=== PATIENT | female | born 1950 | race American Indian/Alaskan Native ===

== ENCOUNTER 2016-08-27 13:40 | Inpatient (IN) | payer MEDICARE, BC, MEDICAID ==
[2016-08-27] VITALS (10 sets, daily range): BP systolic 96–173; BP diastolic 47–100
[~2016-08-27] VITALS: Ht 167.6 cm; Wt 85.3 kg
[~2016-08-27 13:40] MED LIST: DIOVAN HCT 1601 EAC1 ORAL; ENTEX T 60-3751 EACH PO; IBUPROFEN800 MG ORAL; LEVOTHYROXINE150 MCG ORAL; PROTONIX40 MG ORAL
[2016-08-27] MEDS ORDERED: OMEPRAZOLE20 M3 ORAL (13:56)
[2016-08-27] MEDS ORDERED: LORCET HD 10-31 EACH PO (13:56)
[2016-08-27] MEDS ORDERED: BACTRIM DOUBLE S1 E1 ORAL (13:57)
[2016-08-27 14:14] LABS: BASOPHILS % (AUTO) 0.8 % (0.0-2.0); EOSINOPHILS % (AUTO) 3.7 % (0.0-3.0); MEAN CORPUSCULAR HGB CONC 33.9 G/DL (32.0-36.0); MEAN CORPUSCULAR VOLUME 83 FL (80-99); MEAN PLATELET VOLUME 6.3 FL (6.5-10.1); MONOCYTES % (AUTO) 5.8 % (1.0-10.0); NEUTROPHILS % (AUTO) 61.8 % (45.0-75.0); PLATELET COUNT 376 K/UL (150-450); RED BLOOD COUNT 5.61 M/UL (4.20-5.40); RED CELL DISTRIBUTION WIDTH 12.6 % (11.6-14.8); WHITE BLOOD COUNT 10.2 K/UL (4.8-10.8)
[2016-08-27] MEDS ORDERED: LORazepam Inj 2mg/ml 1ml IV ONE ×2 (14:15→17:30)
[2016-08-27 14:27] LABS: INR 1.1 (0.9-1.1); PROTHROMBIN TIME 10.7 SEC (9.30-11.50)
[2016-08-27 14:31] LABS: ALANINE AMINOTRANSFERASE 17 U/L (3-33); ALBUMIN/GLOBULIN RATIO 1.7 (1.0-2.7); ANION GAP 20 (5-15); ASPARTATE AMINO TRANSFERASE 15 U/L (5-40); CALCIUM 9.5 mg/dL (8.6-10.2); CARBON DIOXIDE 25 mEQ/L (20-30); CHLORIDE 99 mEQ/L (98-107); CREATININE 0.8 mg/dL (0.5-0.9); GLOMERULAR FILTRATION RATE > 60 mL/min (>60); HEMOLYSIS 5; POTASSIUM 3.3 mEQ/L (3.4-4.9); SODIUM 144 mEQ/L (135-145); TOTAL PROTEIN 6.8 g/dL (6.6-8.7)
[2016-08-27 14:35] LABS: TROPONIN I < 0.30 ng/mL (<=0.30)
--- NOTE | 2016-08-27 14:40 | Diagnostic Imaging Report ---
Indication: Chest Pain Comparison: None A single view chest radiograph was obtained. Findings: Cardiomediastinal appearance is within normal limits for age. Pulmonary vascularity is appropriate. The diaphragmatic contour is smooth and costophrenic angles are sharp. No pleural effusions are identified. The bones are slightly osteopenic. Cervical fusion hardware noted.. Impression: No acute findings
--- NOTE | 2016-08-27 15:20 | Diagnostic Imaging Report ---
Indication: Syncope Technique: Contiguous 5 mm thick transaxial imaging of the head obtained in a Siemens Sensation [address] scanner. Soft tissue and bone windows generated. Total Dose length Product (DLP): [address] Dose Index Volume (CTDIvol): 70.38 mGy Comparison: 06/23/13 Findings: Small focus of encephalomalacia noted within the right frontal lobe unchanged from the previous examination. Considerations include previous trauma or ischemia. The size and configuration of the cortical sulci, basal cisterns, and ventricles are within normal limits for age. There is no mass effect, midline shift, or edema identified. There is no evidence of acute hemorrhage or abnormal intra-axial or extra-axial fluid collections. The bones and soft tissues are unremarkable. Total thickening noted within the paranasal sinuses. Impression: No mass effect, edema or acute bleed. Encephalomalacia right frontal region. Sinusitis The CT scanner at [facility] is accredited by the [employer] and the scans are performed using protocols designed to limit radiation exposure to as low as reasonably achievable to attain images of sufficient resolution adequate for diagnostic evaluation.
[2016-08-27 15:25] LABS: ERYTHROCYTE SEDIMENTATION RATE 25 MM/HR (0-30)
--- NOTE | 2016-08-27 15:25 | Emergency Room Report ---
History of Present Illness General Chief Complaint: Generalized Weakness Source: Patient, EMS Present Illness HPI The patient presents with near passing out. She feels tingling throughout her body. She was in the supermarket today when this began. She denies feeling dehydrated. She denies having chest pain. She does have some dyspnea on exertion. Hasn't had any fever. The last month she had flu symptoms. Her doctor recently prescribed amoxicillin which she finished. She states this was for a sinus infection. She has some loose stool. She denies any dysuria. There is no joint pain. She denies stress, but her daughter states she is have a lot of stress. She felt similar when she had operation many years ago (post op). No dysuria, joint pain, HARMON, chest pain. Allergies: Coded Allergies: HYDROMORPHONE (Verified Allergy, Unknown, rash, 08/27/16) Patient History Past Medical History: see triage record Past Surgical History: other - spine surgery Social History: Reports: smoking - prior Social History Narrative with daughters - Reviewed Nursing Documentation: PMH: Agreed, PSxH: Agreed Nursing Documentation-PMH Past Medical History: No History, Except For Hx Hypertension: Yes Hx Gastrointestinal Problems: Yes - gerd Hx Neurological Problems: Yes - mulit surgeries on back Review of Systems All Other Systems: negative except mentioned in HPI Physical Exam Vital Signs Date Time Temp Pulse Resp B/P Pulse Ox O2 Delivery O2 Flow Rate FiO2 08/27/16 13:29 98.1 78 12 173/81 99 Room Air Sp02 EP Interpretation: reviewed, normal General Appearance: well appearing, no apparent distress, GCS 15 Head: normocephalic Eyes: bilateral eye EOMI, bilateral eye PERRL, bilateral eye normal inspection ENT: moist mucus membranes Neck: supple Respiratory: chest non-tender, lungs clear, normal breath sounds Cardiovascular #1: regular rate, rhythm Cardiovascular #2: 2+ radial (R) Gastrointestinal: normal inspection, normal bowel sounds, non tender, no mass, non-distended Musculoskeletal: back normal, gait/station normal, normal range of motion Neurologic: alert, oriented x3, physician's assistant III-XII nml as tested, motor strength/tone normal, DTRs symmetric, sensory intact, cerebellar normal, speech normal Psychiatric: mood/affect normal Skin: normal inspection, warm/dry Medical Decision Making Diagnostic Impression: Primary Impression: Near syncope Additional Impressions: Hypokalemia Post R frontal infarct ER Course The patient presents with near syncope and feeling of tingling in her body. This has a broad differential including acute myocardial infarction, hyperventilation, electrolyte abnormalities, dehydration, occult infection amongst others. Evaluation with EKG labs chest x-ray. She has a nonfocal neurologic exam. CT of the head is indicated as she has weakness/unusual symptoms which I cannot pinpoint. Labs significant for slightly low potassium and negative D dimer. CT significant for R frontal infarct which is old (she was unaware - though present on prior CT). Tingling feeling returning. Ativan repeated. Admit tele Dr. Villalba. Laboratory Tests Test 08/27/16 13:45 08/27/16 14:55 White Blood Count 10.2 K/UL (4.8-10.8) Red Blood Count 5.61 M/UL (4.20-5.40) H Hemoglobin 15.7 G/DL (12.0-16.0) Hematocrit 46.3 % (37.0-47.0) Mean Corpuscular Volume 83 FL (80-99) Mean Corpuscular Hemoglobin 28.0 PG (27.0-31.0) Mean Corpuscular Hemoglobin Concent 33.9 G/DL (32.0-36.0) Red Cell Distribution Width 12.6 % (11.6-14.8) Platelet Count 376 K/UL (150-450) Mean Platelet Volume 6.3 FL (6.5-10.1) L Neutrophils (%) (Auto) 61.8 % (45.0-75.0) Lymphocytes (%) (Auto) 28.0 % (20.0-45.0) Monocytes (%) (Auto) 5.8 % (1.0-10.0) Eosinophils (%) (Auto) 3.7 % (0.0-3.0) H Basophils (%) (Auto) 0.8 % (0.0-2.0) Erythrocyte Sedimentation Rate 25 MM/HR (0-30) Prothrombin Time 10.7 SEC (9.30-11.50) Prothrombin Time INR 1.1 (0.9-1.1) PTT 26 SEC (23-33) D-Dimer 356 ng/mL (<500) Sodium Level 144 mEQ/L (135-145) Potassium Level 3.3 mEQ/L (3.4-4.9) L Chloride Level 99 mEQ/L (98-107) Carbon Dioxide Level 25 mEQ/L (20-30) Anion Gap 20 (5-15) H Blood Urea Nitrogen 16 mg/dL (7-23) Creatinine 0.8 mg/dL (0.5-0.9) Estimate Glomerular Filtration Rate > 60 mL/min (>60) Glucose Level 161 mg/dL (74-106) H Calcium Level 9.5 mg/dL (8.6-10.2) Total Bilirubin 0.4 mg/dL (0.0-1.2) Aspartate Amino Transferase (AST) 15 U/L (5-40) Alanine Aminotransferase (ALT) 17 U/L (3-33) Alkaline Phosphatase 120 U/L (35-104) H Total Creatine Kinase 51 U/L (26-140) Troponin I < 0.30 ng/mL (<=0.30) Pro-B-Type Natriuretic Peptide 224 pg/mL (0-125) H Total Protein 6.8 g/dL (6.6-8.7) Albumin 4.3 g/dL (3.5-5.2) Globulin 2.5 g/dL Albumin/Globulin Ratio 1.7 (1.0-2.7) Urine Color Yellow Urine Appearance Slightly cloudy Urine pH 6 (4.5-8.0) Urine Specific [place] 1.015 (1.005-1.035) Urine Protein Negative (NEGATIVE) Urine Glucose (UA) Negative (NEGATIVE) Urine Ketones Negative (NEGATIVE) Urine Occult Blood 2+ (NEGATIVE) H Urine Nitrite Negative (NEGATIVE) Urine Bilirubin Negative (NEGATIVE) Urine Urobilinogen Normal MG/DL (0.0-1.0) Urine Leukocyte Esterase 1+ (NEGATIVE) H Urine RBC 2-4 /HPF (0 - 2) H Urine WBC 2-4 /HPF (0 - 2) Urine Squamous Epithelial Cells Moderate /LPF (NONE/OCC) H Urine Bacteria Few /HPF (NONE) EKG Diagnostic Results Rate: normal Rhythm: NSR ST Segments: no acute changes Rhythm Strip Diag. Results EP Interpretation: yes Rhythm: NSR, no PVC's, no ectopy Chest X-Ray Diagnostic Results EP Interpretation: Yes Findings: no consolidation, no effusion, no pneumothorax, no acute cardiopulmonary disease, other - neck hardware Number of Views: 1 CT/MRI/US Diagnostic Results CT/MRI/US Diagnostic Results : Imaging Test Ordered: head Impression encephalomalecia R frontal lobe Last Vital Signs Date Time Temp Pulse Resp B/P Pulse Ox O2 Delivery O2 Flow Rate FiO2 08/28/16 00:29 63 08/27/16 23:58 98.8 19 147/58 95 Room Air Status: improved Disposition: ADMITTED INPATIENT Condition: Serious Referrals: NON PHYSICIAN (PCP) Ruiz Michael M.D. August 27, 2016 15:24
[2016-08-27 15:50] LABS: KETONES,URINE NEGATIVE (NEGATIVE); LEUKOCYTE ESTERASE ,URINE 1+ (NEGATIVE); NITRITE,URINE NEGATIVE (NEGATIVE); PH,URINE 6 (4.5-8.0); PROTEIN,URINE NEGATIVE (NEGATIVE); UROBILINOGEN,URINE NORMAL MG/DL (0.0-1.0)
[2016-08-27 15:55] LABS: APPEARANCE,URINE SLIGHTLY CLOUDY
[2016-08-27 16:12] LABS: BACTERIA,URINE FEW /HPF; SQUAMOUS EPITHELIAL CELL,UR MODERATE /LPF (NONE/OCC)
[2016-08-27] MEDS ORDERED: KCl 10% 40mEq/30ml liquid ORAL STA (16:57)
--- NOTE | 2016-08-27 19:18 | Cardiology Progress Note ---
Assessment/Plan Assessment/Plan The patient is seen and examined, full consult note is dictated. Objective Last 24 Hour Vital Signs Date Time Temp Pulse Resp B/P Pulse Ox O2 Delivery O2 Flow Rate FiO2 08/27/16 19:00 61 24 96/47 98 Room Air 08/27/16 18:44 97.8 58 18 110/75 99 Room Air 08/27/16 18:00 97.8 58 18 110/75 99 Room Air 08/27/16 17:00 55 14 98/69 97 Room Air 08/27/16 16:00 60 13 134/99 95 Room Air 08/27/16 15:00 57 14 134/100 100 Room Air 08/27/16 14:00 66 13 129/83 100 Room Air 08/27/16 13:43 98.1 78 12 173/81 99 Room Air 08/27/16 13:29 98.1 78 12 173/81 99 Room Air Laboratory Tests Test 08/27/16 13:45 08/27/16 14:55 White Blood Count 10.2 K/UL (4.8-10.8) Red Blood Count 5.61 M/UL (4.20-5.40) H Hemoglobin 15.7 G/DL (12.0-16.0) Hematocrit 46.3 % (37.0-47.0) Mean Corpuscular Volume 83 FL (80-99) Mean Corpuscular Hemoglobin 28.0 PG (27.0-31.0) Mean Corpuscular Hemoglobin Concent 33.9 G/DL (32.0-36.0) Red Cell Distribution Width 12.6 % (11.6-14.8) Platelet Count 376 K/UL (150-450) Mean Platelet Volume 6.3 FL (6.5-10.1) L Neutrophils (%) (Auto) 61.8 % (45.0-75.0) Lymphocytes (%) (Auto) 28.0 % (20.0-45.0) Monocytes (%) (Auto) 5.8 % (1.0-10.0) Eosinophils (%) (Auto) 3.7 % (0.0-3.0) H Basophils (%) (Auto) 0.8 % (0.0-2.0) Erythrocyte Sedimentation Rate 25 MM/HR (0-30) Prothrombin Time 10.7 SEC (9.30-11.50) Prothromb Time International Ratio 1.1 (0.9-1.1) Activated Partial Thromboplast Time 26 SEC (23-33) D-Dimer 356 ng/mL (<500) Sodium Level 144 mEQ/L (135-145) Potassium Level 3.3 mEQ/L (3.4-4.9) L Chloride Level 99 mEQ/L (98-107) Carbon Dioxide Level 25 mEQ/L (20-30) Anion Gap 20 (5-15) H Blood Urea Nitrogen 16 mg/dL (7-23) Creatinine 0.8 mg/dL (0.5-0.9) Estimat Glomerular Filtration Rate > 60 mL/min (>60) Glucose Level 161 mg/dL (74-106) H Calcium Level 9.5 mg/dL (8.6-10.2) Total Bilirubin 0.4 mg/dL (0.0-1.2) Aspartate Amino Transf (AST/SGOT) 15 U/L (5-40) Alanine Aminotransferase (ALT/SGPT) 17 U/L (3-33) Alkaline Phosphatase 120 U/L (35-104) H Total Creatine Kinase 51 U/L (26-140) Troponin I < 0.30 ng/mL (<=0.30) Pro-B-Type Natriuretic Peptide 224 pg/mL (0-125) H Total Protein 6.8 g/dL (6.6-8.7) Albumin 4.3 g/dL (3.5-5.2) Globulin 2.5 g/dL Albumin/Globulin Ratio 1.7 (1.0-2.7) Urine Color Yellow Urine Appearance Slightly cloudy Urine pH 6 (4.5-8.0) Urine Specific [place] 1.015 (1.005-1.035) Urine Protein Negative (NEGATIVE) Urine Glucose (UA) Negative (NEGATIVE) Urine Ketones Negative (NEGATIVE) Urine Occult Blood 2+ (NEGATIVE) H Urine Nitrite Negative (NEGATIVE) Urine Bilirubin Negative (NEGATIVE) Urine Urobilinogen Normal MG/DL (0.0-1.0) Urine Leukocyte Esterase 1+ (NEGATIVE) H Urine RBC 2-4 /HPF (0 - 2) H Urine WBC 2-4 /HPF (0 - 2) Urine Squamous Epithelial Cells Moderate /LPF (NONE/OCC) H Urine Bacteria Few /HPF (NONE) DELMY TEIXEIRA August 27, 2016 19:18
[2016-08-27] MEDS: Pantoprazole Inj IVP SCH (20:36)
[2016-08-27] MEDS: Heparin 5000 units/ml inj SUBQ SCH (20:37)
[2016-08-28 03:53] VITALS: BP 138/67
[2016-08-28 08:00] VITALS: BP 130/76
[2016-08-28 08:44] LABS: BASOPHILS % (AUTO) 0.8 % (0.0-2.0); EOSINOPHILS % (AUTO) 4.9 % (0.0-3.0); LYMPHOCYTES % (AUTO) 32.6 % (20.0-45.0); MEAN CORPUSCULAR HEMOGLOBIN 27.9 PG (27.0-31.0); MEAN CORPUSCULAR HGB CONC 32.6 G/DL (32.0-36.0); MEAN CORPUSCULAR VOLUME 85 FL (80-99); MEAN PLATELET VOLUME 6.6 FL (6.5-10.1); NEUTROPHILS % (AUTO) 54.7 % (45.0-75.0); PLATELET COUNT 308 K/UL (150-450); RED BLOOD COUNT 5.16 M/UL (4.20-5.40); RED CELL DISTRIBUTION WIDTH 13.1 % (11.6-14.8); WHITE BLOOD COUNT 9.1 K/UL (4.8-10.8)
[2016-08-28 08:58] LABS: ANION GAP 14 (5-15); CARBON DIOXIDE 26 mEQ/L (20-30); CHLORIDE 102 mEQ/L (98-107); CREATININE 0.8 mg/dL (0.5-0.9); GLOMERULAR FILTRATION RATE > 60 mL/min (>60); HEMOLYSIS 4; POTASSIUM 3.7 mEQ/L (3.4-4.9); SODIUM 142 mEQ/L (135-145)
[2016-08-28 08:59] LABS: TROPONIN I < 0.30 ng/mL (<=0.30)
[2016-08-28] MEDS: Aspirin Baby 81mg ORAL SCH (09:00)
[2016-08-28] MEDS: Irbesartan 150mg tablet ORAL SCH (09:08)
[2016-08-28] MEDS: Norco 10mg/325mg tab ORAL PRN (09:11)
[2016-08-28] MEDS: Pantoprazole Inj IVP SCH ×2 (09:11→20:34)
[2016-08-28] MEDS: Heparin 5000 units/ml inj SUBQ SCH ×2 (09:16→20:36)
--- NOTE | 2016-08-28 09:31 | History & Physical ---
History and Physical History & Physicial seen and examined. Dictation completed. Daniel Villalba MD August 28, 2016 09:31
--- NOTE | 2016-08-28 09:32 | General Progress Note ---
Assessment/Plan Status: stable Assessment/Plan 1- Acute encephalopathy 2- HTN 3- chronic pain 4- Hypothyroidism 5- GI-DVT prophylaxia Plan: cardiology, Dr malone, notified Subjective ROS Limited/Unobtainable: No Constitutional: Reports: no symptoms HEENT: Reports: no symptoms Cardiovascular: Reports: no symptoms Respiratory: Reports: no symptoms Allergies: Coded Allergies: HYDROMORPHONE (Verified Allergy, Unknown, rash, 08/27/16) Objective Last 24 Hour Vital Signs Date Time Temp Pulse Resp B/P Pulse Ox O2 Delivery O2 Flow Rate FiO2 08/28/16 09:08 130/76 08/28/16 08:00 97.7 61 20 130/76 97 Room Air 08/28/16 04:45 64 08/28/16 03:53 97.3 56 18 138/67 95 Room Air 08/28/16 00:29 63 08/27/16 23:58 98.8 68 19 147/58 95 Room Air 08/27/16 19:30 98.4 65 18 101/68 99 Room Air 08/27/16 19:30 98.4 65 18 101/68 99 Room Air 08/27/16 19:00 61 24 96/47 98 Room Air 08/27/16 18:44 97.8 58 18 110/75 99 Room Air 08/27/16 18:00 97.8 58 18 110/75 99 Room Air 08/27/16 17:00 55 14 98/69 97 Room Air 08/27/16 16:00 60 13 134/99 95 Room Air 08/27/16 15:00 57 14 134/100 100 Room Air 08/27/16 14:00 66 13 129/83 100 Room Air 08/27/16 13:43 98.1 78 12 173/81 99 Room Air 08/27/16 13:29 98.1 78 12 173/81 99 Room Air Intake and Output 08/27/16 08/28/16 19:00 07:00 Intake Total 1000 ml Output Total 0 ml Balance 1000 ml 0 ml Intake IV Total 1000 ml Output Urine Total 0 ml # Voids 2 Laboratory Tests 08/27/16 13:45: White Blood Count 10.2, Red Blood Count 5.61H, Hemoglobin 15.7, Hematocrit 46.3 , Mean Corpuscular Volume 83, Mean Corpuscular Hemoglobin 28.0, Mean Corpuscular Hemoglobin Concent 33.9, Red Cell Distribution Width 12.6, Platelet Count 376, Mean Platelet Volume 6.3L, Neutrophils (%) (Auto) 61.8, Lymphocytes ( %) (Auto) 28.0, Monocytes (%) (Auto) 5.8, Eosinophils (%) (Auto) 3.7H, Basophils (%) (Auto) 0.8, Erythrocyte Sedimentation Rate 25, Prothrombin Time 10.7, Prothromb Time International Ratio 1.1, Activated Partial Thromboplast Time 26, D-Dimer 356, Sodium Level 144, Potassium Level 3.3L, Chloride Level 99 , Carbon Dioxide Level 25, Anion Gap 20H, Blood Urea Nitrogen 16, Creatinine 0.8 , Estimat Glomerular Filtration Rate > 60, Glucose Level 161H, Calcium Level 9.5 , Total Bilirubin 0.4, Aspartate Amino Transf (AST/SGOT) 15, Alanine Aminotransferase (ALT/SGPT) 17, Alkaline Phosphatase 120H, Total Creatine Kinase 51, Troponin I < 0.30, Pro-B-Type Natriuretic Peptide 224H, Total Protein 6.8, Albumin 4.3, Globulin 2.5, Albumin/Globulin Ratio 1.7 08/27/16 14:55: Urine Color Yellow, Urine Appearance Slightly cloudy, Urine pH 6, Urine Specific [place] 1.015, Urine Protein Negative, Urine Glucose (UA) Negative, Urine Ketones Negative, Urine Occult Blood 2+H, Urine Nitrite Negative, Urine Bilirubin Negative, Urine Urobilinogen Normal, Urine Leukocyte Esterase 1+H, Urine RBC 2-4H, Urine WBC 2-4, Urine Squamous Epithelial Cells ModerateH, Urine Bacteria Few 08/28/16 06:23: White Blood Count 9.1, Red Blood Count 5.16, Hemoglobin 14.4, Hematocrit 44.0, Mean Corpuscular Volume 85, Mean Corpuscular Hemoglobin 27.9, Mean Corpuscular Hemoglobin Concent 32.6, Red Cell Distribution Width 13.1, Platelet Count 308, Mean Platelet Volume 6.6, Neutrophils (%) (Auto) 54.7, Lymphocytes (%) (Auto) 32.6, Monocytes (%) (Auto) 7.0, Eosinophils (%) (Auto) 4.9H, Basophils (%) (Auto ) 0.8, Sodium Level 142, Potassium Level 3.7, Chloride Level 102, Carbon Dioxide Level 26, Anion Gap 14, Blood Urea Nitrogen 15, Creatinine 0.8, Estimat Glomerular Filtration Rate > 60, Glucose Level 147H, Calcium Level 9.0, Troponin I < 0.30 Height (Feet): 5 Height (Inches): 6.00 Weight (Pounds): 188 General Appearance: no apparent distress EENT: PERRL/EOMI Neck: supple Cardiovascular: normal rate Respiratory/Chest: lungs clear Abdomen: soft Extremities: non-tender Neurologic: administrative support clerk II-XII grossly normal Daniel Villalba MD August 28, 2016 09:32
[2016-08-28 10:34] LABS: CHOLESTEROL/HDL RATIO 6.2 (3.3-4.4)
[2016-08-28 10:56] LABS: THYROID STIMULATING HORMONE 0.028 uIU/mL (0.300-4.500)
[2016-08-28 12:00] VITALS: BP 142/83
[2016-08-28 12:21] LABS: TROPONIN I < 0.30 ng/mL (<=0.30)
[2016-08-28 16:00] VITALS: BP 133/72
--- NOTE | 2016-08-28 16:59 | History and Physical Report ---
DATE OF ADMISSION: 08/27/2016 SOURCE OF INFORMATION: Patient and EMR. HISTORY OF PRESENT ILLNESS: The patient is a 66-year-old female with a history of near loss of consciousness. The patient denies any loss of consciousness. The episodes lasted for couple of minutes and started for the last two days prior to admission. Initial evaluation in the emergency room showed uncontrolled blood pressure, otherwise unremarkable. The patient denies any chest pain or any shortness of breath. REVIEW OF SYSTEMS: A 10-point elements of review of systems reviewed. Positive pertinent findings in HPI. PAST SURGICAL HISTORY: Positive for multiple upper and lower back surgeries. ALLERGIES: Dilaudid. SOCIAL HISTORY: The patient is positive for history of tobacco smoking, 20 pack per year. Negative for illicit drug abuse. Negative for alcohol abuse. PAST MEDICAL HISTORY: Lumbar spondylosis, multiple surgeries, hypertension, and hypothyroidism. PHYSICAL EXAMINATION: VITAL SIGNS: Blood pressure 170/80, temperature 98.2, respiratory rate 18, pulse rate 75 to 80, and pulse ox 99% on room air. HEAD AND NECK: Atraumatic and normocephalic. CHEST: Clear to auscultation. HEART: S1 and S2. Regular rate and rhythm. ABDOMEN: Soft. No organomegaly. MUSCULOSKELETAL: No gross focal motor deficit. NEUROLOGY: The patient is awake, alert, and oriented x3. LABORATORY DATA: Lab results dated 08/27/2016 shows WBC 10.2, hemoglobin 15.7, and platelets 376,000. Sodium 144, potassium 3.3, BUN 16, and creatinine 0.8. BNP 224. Urine shows few bacteria and 2 to 4 WBC. IMAGING: CT scan of the brain is negative for any acute pathology. Chest x-ray is unremarkable for acute pathology. EKG is reviewed and shows normal sinus rhythm. ASSESSMENT: 1. Acute encephalopathy. 2. Hypertension. 3. Active tobacco smoking with history of more than 20 pack per a year. 4. Hypothyroidism. 5. Chronic lumbar spondylosis. 6. Gastrointestinal and deep vein thrombosis prophylaxes. PLAN OF CARE: I will resume the home medications. Cardiology, Dr. Watkins has been notified. We will proceed with a 2D echo. We will check the lipid panel and TSH. Daniel Villalba M.D. DR: STEVENSON JOB#: [id number] CC:
--- NOTE | 2016-08-28 17:33 | Cardiology Report ---
APPROVED REPORT EKG Measurement Heart [id number] [place] [id number] Normal sinus rhythm Septal infarct, age undetermined Abnormal ECG
[2016-08-28 20:14] VITALS: BP 144/85
[2016-08-28 23:48] VITALS: BP 151/78
[2016-08-29 03:52] VITALS: BP 157/97
[2016-08-29] MEDS: Heparin 5000 units/ml inj SUBQ SCH ×2 (08:12→20:19)
[2016-08-29] MEDS: Aspirin Baby 81mg ORAL SCH (08:12)
[2016-08-29] MEDS: Irbesartan 150mg tablet ORAL SCH (08:13)
[2016-08-29 08:34] VITALS: BP 172/76
[2016-08-29] MEDS: Norco 10mg/325mg tab ORAL PRN (10:07)
[2016-08-29 10:25] VITALS: BP 143/72
[2016-08-29 11:45] VITALS: BP 151/73
--- NOTE | 2016-08-29 12:22 | General Progress Note ---
Assessment/Plan Status: stable Assessment/Plan 1. Acute encephalopathy. 2. Hypertension. 3. Active tobacco smoking with history of more than 20 pack per a year. 4. Hyperthyroid. 5. Chronic lumbar spondylosis. 6. Gastrointestinal and deep vein thrombosis prophylaxes. Plan: cardiology, notes are reviewed. Neurology is consulted Subjective ROS Limited/Unobtainable: No Constitutional: Reports: no symptoms HEENT: Reports: no symptoms Cardiovascular: Reports: no symptoms Respiratory: Reports: no symptoms Allergies: Coded Allergies: HYDROMORPHONE (Verified Allergy, Unknown, rash, 08/27/16) Objective Last 24 Hour Vital Signs Date Time Temp Pulse Resp B/P Pulse Ox O2 Delivery O2 Flow Rate FiO2 08/29/16 11:55 81 08/29/16 11:50 70 08/29/16 11:45 97.9 64 18 151/73 99 Room Air 08/29/16 11:45 64 08/29/16 10:25 65 143/72 08/29/16 08:34 97.7 58 18 172/76 96 Room Air 08/29/16 08:13 172/76 08/29/16 07:45 58 08/29/16 04:00 59 08/29/16 03:52 98.3 61 19 157/97 98 Room Air 08/29/16 00:00 59 08/28/16 23:48 98.3 61 18 151/78 95 Room Air 08/28/16 20:14 98.3 62 19 144/85 97 Room Air 08/28/16 20:00 62 08/28/16 16:00 97.7 63 20 133/72 96 Room Air 08/28/16 15:29 57 Intake and Output 08/28/16 08/29/16 19:00 07:00 Intake Total 120 ml Balance 120 ml Intake Oral 120 ml # Voids 3 2 Height (Feet): 5 Height (Inches): 6.00 Weight (Pounds): 188 General Appearance: no apparent distress EENT: PERRL/EOMI Neck: supple Cardiovascular: normal rate Respiratory/Chest: lungs clear Abdomen: soft Extremities: non-tender Neurologic: oriented x 3 Daniel Villalba MD August 29, 2016 12:22
--- NOTE | 2016-08-29 12:38 | Neurology Progress Note ---
Interim History Interim History ROS Limited/Unobtainable: No Objective Physical Exam Last Vital Signs Date Time Temp Pulse Resp B/P Pulse Ox O2 Delivery O2 Flow Rate FiO2 08/29/16 11:55 81 08/29/16 11:45 97.9 18 151/73 99 Room Air Impression/Recommendations Problems: (1) sinusitis with new onset of vestibular dysfunction Status: stable Recommendations #[id number] VICKY MARTINES August 29, 2016 12:38
--- NOTE | 2016-08-29 12:42 | Neurology Progress Note ---
Interim History Interim History ROS Limited/Unobtainable: No Objective Physical Exam Last Vital Signs Date Time Temp Pulse Resp B/P Pulse Ox O2 Delivery O2 Flow Rate FiO2 08/29/16 11:55 81 08/29/16 11:45 97.9 18 151/73 99 Room Air Impression/Recommendations Problems: (1) sinusitis with new onset of vestibular dysfunction (2) Low TSH level Status: stable Recommendations #[id number] antivert 12.5mg tid ENT VICKY Perez August 29, 2016 12:42
[2016-08-29] MEDS: Meclizine 25mg tab ORAL SCH ×3 (13:06→23:17)
[2016-08-29 15:37] VITALS: BP 142/64
[2016-08-29 15:56] LABS: THYROID STIMULATING HORMONE 0.026 uIU/mL (0.300-4.500)
[2016-08-29 20:00] VITALS: BP 147/76
--- NOTE | 2016-08-29 23:42 | Cardiology Progress Note ---
Assessment/Plan Assessment/Plan 1.Pre-syncope, normal LVEF per echo, likely due to hypovolemia in view of long days of diarrhea, check orthostatics. 2. Hx of HTN 3. Dyslipidemia 4. Hx of GERD. 5. Hyperthyroidism Subjective Subjective Sinus rhythm at 69. Objective Last 24 Hour Vital Signs Date Time Temp Pulse Resp B/P Pulse Ox O2 Delivery O2 Flow Rate FiO2 08/29/16 22:41 67 08/29/16 20:00 66 74 78 08/29/16 20:00 98.2 66 20 147/76 66 Room Air 08/29/16 15:43 65 08/29/16 15:37 97.7 67 18 142/64 98 Room Air 08/29/16 11:55 81 08/29/16 11:50 70 08/29/16 11:45 97.9 64 18 151/73 99 Room Air 08/29/16 11:45 64 08/29/16 11:26 86 08/29/16 10:25 65 143/72 08/29/16 08:34 97.7 58 18 172/76 96 Room Air 08/29/16 08:13 172/76 08/29/16 07:45 58 08/29/16 04:00 59 08/29/16 03:52 98.3 61 19 157/97 98 Room Air 08/29/16 00:00 59 08/28/16 23:48 98.3 61 18 151/78 95 Room Air Intake and Output 08/28/16 08/29/16 19:00 07:00 Intake Total 120 ml Balance 120 ml Intake Oral 120 ml # Voids 3 2 2D Echo: LVEF 60-65%, Mild LVH, Grade I LVDD Laboratory Tests Test 08/29/16 14:57 Thyroid Stimulating Hormone (TSH) 0.026 uIU/mL (0.300-4.500) Free Thyroxine 1.92 ng/dL (0.86-1.85) H Objective HEENT: Atraumatic and normocephalic, PERRLA, EOMI NECK: No JVD, no carotid bruit, with 2+ upstroke CHEST: Clear to auscultation. HEART: Normal S1 and S2. Regular rate and rhythm, 2/6 MSM at LSB ABDOMEN: Soft. Non-tender, non-distended, no organomegaly. MUSCULOSKELETAL: No edema, clubbing or cyanosis NEUROLOGY: Normal cranial II- XII, no focal deficits DELMY TEIXEIRA August 29, 2016 23:42
--- NOTE | 2016-08-29 23:58 | Consultation ---
DATE OF CONSULTATION: 08/29/2016 NEUROLOGICAL CONSULTATION CONSULTING PHYSICIAN: Mihai De La Paz M.D. REQUESTING PHYSICIAN: Daniel Villalba M.D. HISTORY OF PRESENT ILLNESS: This is a 66-year-old female, seen in neurological consultation to evaluate new onset of generalized weakness and dizziness The patient informed me that in the last couple of months, she is not feeling well. She feels like she has flu-like symptoms including body aches, skin sensitivity, and chills. She was seen by her family physician, Dr. Bárbara Worthington, who placed her on a brief course of amoxicillin. She felt temporarily improvement, but then symptoms came back and at that point, she was suspected might having sinusitis and 10 days' course of amoxicillin was restarted as well as Mucinex. She was gradually improving and felt much better when on the day of admission, she was shopping doing fairly well. At around 11 a.m., she started to feel sluggish, weak, heavy legs, and started to develop dizziness. She felt that she might pass out. At that point, paramedics were called to the scene. She was brought to the emergency room complaining of tingling throughout the body, weakness, slight dyspnea on exertion, and some loose stool. Her daughter who came with her indicated that she is under a lot of stress. The patient recalled that several years ago after having surgery on her lumbar spine, she had episodes of acute vertigo which responded to treatment with Antivert. Following current admission, her vital signs included blood pressure 173/81 and temperature 98.1 degrees. Laboratory work was obtained. CBC study unremarkable. Coagulation panel was normal. D-dimer was 356. Chemistry panel, alkaline phosphatase 120. BNP 224. Glucose 161. Elevated triglycerides at 278. TSH . Imaging studies included a chest x-ray with no acute abnormalities noted and CT scan of the brain revealing a small focus of encephalomalacia in the right frontal lobe, unchanged from previous examination in 2013. Total thickening noted within paranasal sinuses compatible with sinusitis. Since admission, the patient felt some improvement and still continued to have "dizziness" especially when lying flat on her head or turning to the left." PAST MEDICAL HISTORY: History of hypertension, hyperlipidemia, and hypothyroidism. PAST SURGICAL HISTORY: History of 7 surgeries on the cervical and lumbar spine for laminectomy, developing chronic pain. MEDICATIONS: Her treatment prior to admission included pseudoephedrine , hydrocodone as needed, ibuprofen, levothyroxine, omeprazole, pantoprazole, Bactrim, and Diovan. ALLERGIES: Hydromorphone. FAMILY HISTORY: Noncontributory. SOCIAL HISTORY: She is a smoker. No alcohol. No drug abuse. Now disabled. 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 REVIEW OF SYMPTOMS: Dizziness, generalized weakness, tiredness, but no chest pain. No palpitations. No respiratory difficulties. Denies abdominal pain or discomfort. No urinary or bowel incontinence. The patient is anxious concerning that something is wrong with "my head." PHYSICAL EXAMINATION: GENERAL: A well-developed, moderately obese female, not in acute distress, lying comfortably in bed, smiling. VITAL SIGNS: Stable. Blood pressure 151/73. She is afebrile. Her heart rate is 64. HEENT: Head is normocephalic. No evidence of trauma. Eyes, ears, and throat are clear. NECK: Supple. No meningeal signs. MUSCULOSKELETAL: Unremarkable except postoperative scarring in the cervical and lumbar region. EXTREMITIES: Peripheral pulses 1+ and symmetric. MENTAL STATUS: The patient is alert and oriented x3. Speech is fluent. Language intact. There is no aphasia. No apraxia. Cognitive function normal. Somewhat tense and anxious concerned that she might have trouble with her head. CRANIAL NERVE II: Pupils both responding to light and accommodation. Extraocular movements intact, but developed nystagmus in Hallpike maneuver. CRANIAL NERVE V: Normal corneal responses. CRANIAL NERVE VII: No facial asymmetry. CRANIAL NERVE VIII: Normal hearing. Positive Hallpike with head turned to the left causing acute vertigo and rotatory nystagmus. CRANIAL NERVES IX THROUGH XII: Tongue is in midline. Symmetric palate elevation. MOTOR EXAMINATION: Normal muscle tone. Strength is 5/5 in all extremities. No involuntary movement. Deep reflexes 1+ and symmetric with downgoing toes on both sides. SENSORY EXAMINATION: Normal to pinprick and light touch. GAIT: Stable. IMPRESSION: 1. Chronic sinusitis with new onset of mild vestibular dysfunction. 2. Hypertension. 3. Hypothyroidism. 4. Chronic upper and lower back pain. RECOMMENDATION: 1. Start on meclizine 12.5 mg t.i.d. 2. ENT evaluation regarding antibiotic-resistant sinusitis. 3. Orthostatic blood pressure. 4. Continue with current treatment. Thank you for allowing me to see this interesting patient in neurological consultation. Mihai Jez De La Paz DR: GERI JOB#: [id number] CC:
[2016-08-30] VITALS: BP 146/75
[2016-08-30 04:00] VITALS: BP 143/79
[2016-08-30] MEDS: Meclizine 25mg tab ORAL SCH ×3 (05:51→18:16)
[2016-08-30 08:00] VITALS: BP 136/72
--- NOTE | 2016-08-30 08:50 | Cardiology Report ---
APPROVED REPORT EXAM: Two-dimensional and M-mode echocardiogram with Doppler and color Doppler. INDICATION Syncope M-Mode DIMENSIONS IVSd1.0 (0.7-1.1cm)Left Atrium (MM)3.1 (1.6-4.0cm) LVDd3.5 (3.5-5.6cm)Aortic Root2.5 (2.0-3.7cm) PWd1.0 (0.7-1.1cm)Aortic Cusp Exc.2.0 (1.5-2.0cm) LVDs1.8 (2.5-4.0cm) PWs1.2 cm Technically difficult study due to poor acoustic windows. Normal left ventricular chamber size, systolic function and wall motion. Left ventricular ejection fraction estimated to be 60-65 %. Mild left ventricular hypertrophy. No evidence of pericardial fat or effusion. All other cardiac chamber sizes are within normal limits. Focal aortic valve sclerosis with adequate cusp excursion Thickened mitral valve leaflets with normal excursion. Mild mitral annulus and aortic root calcification. Pulmonic valve not well visualized. Normal tricuspid valve structure. Difficult to assess IVC. A color flow and spectral Doppler study was performed and revealed: No aortic regurgitation. No mitral regurgitation. Left ventricular diastolic dysfunction grade 1. No tricuspid regurgitation.
[2016-08-30] MEDS: Irbesartan 150mg tablet ORAL SCH (09:01)
[2016-08-30] MEDS: Heparin 5000 units/ml inj SUBQ SCH ×2 (09:03→20:54)
[2016-08-30] MEDS: Aspirin Baby 81mg ORAL SCH (09:12)
[2016-08-30] MEDS: Norco 10mg/325mg tab ORAL PRN (10:51)
--- NOTE | 2016-08-30 11:00 | General Progress Note ---
Assessment/Plan Status: stable Assessment/Plan 1. Acute encephalopathy 2. Hypertension. 3. Active tobacco smoking with history of more than 20 pack per a year. 4. Hyperthyroid. 5. Chronic lumbar spondylosis. 6. Gastrointestinal and deep vein thrombosis prophylaxes. 7. hyperthyroidism Plan: cardiology and Neurology , notes are reviewed. case is discussed with Dr Watkins. Will be assessed for the need for ischemic workup Endocrinology is notified. Subjective ROS Limited/Unobtainable: No Constitutional: Reports: no symptoms HEENT: Reports: no symptoms Cardiovascular: Reports: no symptoms Respiratory: Reports: no symptoms Allergies: Coded Allergies: HYDROMORPHONE (Verified Allergy, Unknown, rash, 08/27/16) Objective Last 24 Hour Vital Signs Date Time Temp Pulse Resp B/P Pulse Ox O2 Delivery O2 Flow Rate FiO2 08/30/16 09:01 133/71 08/30/16 08:48 65 08/30/16 08:00 60 60 68 08/30/16 08:00 97.5 60 18 136/72 100 Room Air 08/30/16 04:00 97.7 58 18 143/79 99 Room Air 08/30/16 04:00 59 08/30/16 00:00 97.0 61 20 146/75 99 Room Air 08/29/16 22:41 67 08/29/16 20:00 66 74 78 08/29/16 20:00 98.2 66 20 147/76 66 Room Air 08/29/16 15:43 65 08/29/16 15:37 97.7 67 18 142/64 98 Room Air 08/29/16 11:55 81 08/29/16 11:50 70 08/29/16 11:45 97.9 64 18 151/73 99 Room Air 08/29/16 11:45 64 08/29/16 11:26 86 Intake and Output 08/29/16 08/30/16 19:00 07:00 Intake Total 600 ml Balance 600 ml Intake Oral 600 ml # Voids 3 3 Laboratory Tests 08/29/16 14:57: Thyroid Stimulating Hormone (TSH) 0.026L, Free Thyroxine 1.92H Height (Feet): 5 Height (Inches): 6.00 Weight (Pounds): 188 General Appearance: no apparent distress EENT: PERRL/EOMI Neck: supple Cardiovascular: normal rate Respiratory/Chest: lungs clear Abdomen: soft Extremities: non-tender 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
--- NOTE | 2016-08-30 11:36 | Diagnostic Imaging Report ---
APPROVED REPORT CPT Code: 39902 Present Symptoms Lower Extremity Pain: Bilateral BILATERAL: Imaging reveals a patent deep venous system bilaterally. There is no evidence of thrombus within the femoral, popliteal or tibial segments. The greater saphenous veins are also within normal limits. Doppler indicates normal spontaneous flow within these segments.
--- NOTE | 2016-08-30 11:36 | Diagnostic Imaging Report ---
APPROVED REPORT CPT Code: 05505 Vascular Symptoms Dizziness and Vertigo CAROTID (BILATERAL) - Imaging reveals no significant plaque within the right and left extracranial carotid arteries. The Doppler spectral flow analysis is within normal limits throughout the extracranial carotid arteries bilaterally. VERTEBRAL- The vertebral arteries are within normal limits.
[2016-08-30 12:00] VITALS: BP 147/87
--- NOTE | 2016-08-30 12:21 | Neurology Progress Note ---
Interim History Interim History ROS Limited/Unobtainable: No Complaints: dizzyness nausea Events: stable Objective Physical Exam Last Vital Signs Date Time Temp Pulse Resp B/P Pulse Ox O2 Delivery O2 Flow Rate FiO2 08/30/16 09:01 133/71 08/30/16 08:48 65 08/30/16 08:00 97.5 18 100 Room Air Laboratory Tests Test 08/29/16 14:57 Thyroid Stimulating Hormone (TSH) 0.026 uIU/mL (0.300-4.500) Free Thyroxine 1.92 ng/dL (0.86-1.85) H General: well developed, no acute distress, other - m obese Head: normocophalic, atraumatic Neck: no rigidity Neurologic Exam Mental Status: awake, alert, oriented x4, normal cognition, good mathematical skills, normal recent memory, normal remote memory, preserved visuospatial function, other - tense anxious Speech: normal speech, no dysarthia Language: normal language, no aphasia Cranial Nerve II: fundus normal, visual molina, no papilledema Cranial Nerves III, IV, : PERRLA, EOMI, pupils Cranial Nerve V: normal facial sensations, temporales function normal, masseters function normal, pterygoids function normal Cranial Nerve VII: no facial asymmetry, normal facial expressions Cranial Nerve VIII: normal hearing, other - dizzy when head turning Cranial Nerve IX: normal palate elevation, gag response Cranial Nerve X: no voice hoarseness Cranial Nerve XI: SCM symmetric, trapezii function normal Cranial Nerve XII: tongue midline, no tongue atrophy/fasciculations Motor System: normal muscle tone, strength 5/5, no involuntary movement, no muscle wasting Sensory: normal pinprick, normal light touch, normal position sense, normal graphesthesia Coordination: normal finger to nose bilaterally, normal heel to sibley bilaterally, negative Romberg test Deep Tendon Reflexes: 2+ ankle (L), 2+ ankle (R), 2+ bicep (L), 2+ bicep (R), 2 + brachioradialis (L), 2+ brachioradialis (R), 2+ knee (L), 2+ knee (R), 2+ tricep (L), 2+ tricep (R) Stance: normal Gait: stable, normal regular, heel + toe gait, other - slow wabbly Impression/Recommendations Problems: (1) sinusitis with new onset of vestibular dysfunction (2) Low TSH level Status: stable Recommendations #[id number] antivert 12.5mg tid ENT eval pt/ot d/w attending VICKY MARTINES August 30, 2016 12:21
--- NOTE | 2016-08-30 13:53 | Cardiology Progress Note ---
Assessment/Plan Assessment/Plan 1.Pre-syncope, normal LVEF per echo, likely due to hypovolemia in view of long days of diarrhea, check orthostatics. 2. Hx of HTN, will increase irbesartan to 300mg po qd 3. Dyslipidemia 4. Hx of GERD. 5. Hyperthyroidism Subjective Subjective Sinus rhythm at 67. Objective Last 24 Hour Vital Signs Date Time Temp Pulse Resp B/P Pulse Ox O2 Delivery O2 Flow Rate FiO2 08/30/16 12:00 97.6 55 18 147/87 100 Room Air 08/30/16 09:01 133/71 08/30/16 08:48 65 08/30/16 08:00 60 60 68 08/30/16 08:00 97.5 60 18 136/72 100 Room Air 08/30/16 04:00 97.7 58 18 143/79 99 Room Air 08/30/16 04:00 59 08/30/16 00:00 97.0 61 20 146/75 99 Room Air 08/29/16 22:41 67 08/29/16 20:00 66 74 78 08/29/16 20:00 98.2 66 20 147/76 66 Room Air 08/29/16 15:43 65 08/29/16 15:37 97.7 67 18 142/64 98 Room Air Intake and Output 08/29/16 08/30/16 19:00 07:00 Intake Total 600 ml Balance 600 ml Intake Oral 600 ml # Voids 3 3 2D Echo: LVEF 60-65%, Mild LVH, Grade I LVDD Laboratory Tests Test 08/29/16 14:57 Thyroid Stimulating Hormone (TSH) 0.026 uIU/mL (0.300-4.500) Free Thyroxine 1.92 ng/dL (0.86-1.85) H Objective HEENT: Atraumatic and normocephalic, PERRLA, EOMI NECK: No JVD, no carotid bruit, with 2+ upstroke CHEST: Clear to auscultation. HEART: Normal S1 and S2. Regular rate and rhythm, 2/6 MSM at LSB ABDOMEN: Soft. Non-tender, non-distended, no organomegaly. MUSCULOSKELETAL: No edema, clubbing or cyanosis NEUROLOGY: Normal cranial II- XII, no focal deficits DELMY TEIXEIRA August 30, 2016 13:53
[2016-08-30 16:00] VITALS: BP 136/71
[2016-08-30 20:00] VITALS: BP 138/56
[2016-08-31] VITALS: BP 157/82
[2016-08-31] MEDS: Meclizine 25mg tab ORAL SCH ×2 (01:00→06:31)
[2016-08-31 04:10] VITALS: BP 142/72
[2016-08-31 08:00] VITALS: BP 128/70
[2016-08-31] MEDS: Norco 10mg/325mg tab ORAL PRN (08:10)
[2016-08-31] MEDS ORDERED: Irbesartan 150mg tablet ORAL SCH (09:00)
[2016-08-31] MEDS: Aspirin Baby 81mg ORAL SCH (09:04)
[2016-08-31] MEDS: Heparin 5000 units/ml inj SUBQ SCH (09:08)
--- NOTE | 2016-08-31 09:35 | General Progress Note ---
Assessment/Plan Status: stable Assessment/Plan 1. Acute encephalopathy 2. Hypertension. 3. Active tobacco smoking with history of more than 20 pack per a year. 4. Hyperthyroid. 5. Chronic lumbar spondylosis. 6. Gastrointestinal and deep vein thrombosis prophylaxes. 7. hyperthyroidism Plan: cardiology and Neurology , notes are reviewed. case is discussed with Dr Bernardo. Endocrinology is notified. Discharge pending to cardiology clearance Subjective ROS Limited/Unobtainable: No Cardiovascular: Reports: lightheadedness Allergies: Coded Allergies: HYDROMORPHONE (Verified Allergy, Unknown, rash, 08/27/16) Objective Last 24 Hour Vital Signs Date Time Temp Pulse Resp B/P Pulse Ox O2 Delivery O2 Flow Rate FiO2 08/31/16 09:09 128/70 08/31/16 08:00 98.1 77 18 128/70 99 Room Air 08/31/16 04:10 97.8 58 19 142/72 97 Room Air 08/31/16 04:00 54 08/31/16 00:00 97.7 54 18 157/82 98 Room Air 08/31/16 00:00 53 08/30/16 20:00 64 08/30/16 20:00 97.6 94 18 138/56 98 Room Air 08/30/16 20:00 94 70 76 08/30/16 17:46 63 08/30/16 16:00 97.0 63 18 136/71 98 Room Air 08/30/16 13:45 70 08/30/16 12:00 97.6 55 18 147/87 100 Room Air Intake and Output 08/30/16 08/31/16 19:00 07:00 Intake Total 120 ml Balance 120 ml Intake Oral 120 ml # Voids 4 4 Height (Feet): 5 Height (Inches): 6.00 Weight (Pounds): 188 General Appearance: no apparent distress EENT: PERRL/EOMI Neck: supple Cardiovascular: normal rate Respiratory/Chest: lungs clear Abdomen: soft Extremities: non-tender 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
[2016-08-31 12:00] VITALS: BP 142/70
--- NOTE | 2016-09-01 19:13 | Discharge Summary ---
Discharge Summary Hospital Course Date of Admission August 27, 2016 at 17:18 Date of Discharge August 31, 2016 at 12:05 Admitting Diagnosis NEAR SYNCOPE HPI Sarah Ott is a 66 year old female who was admitted on August 27, 2016 at 17:18 for Near Syncope Hospital Course job #[id number] Discharge Discharge Disposition Patient left AMA Discharge Diagnoses: Justine Tyson NP September 01, 2016 19:13
--- NOTE | 2016-09-02 00:49 | Discharge Summary 2 SIG ---
DATE OF ADMISSION: 08/27/2016 DATE OF DISCHARGE: 08/31/2016 CONSULTANTS: 1. Nikolai Watkins M.D. 2. Mihai De La Paz M.D. BRIEF HOSPITAL COURSE: The patient is a 66-year-old female with history of near loss of consciousness. She was taken to [facility] for uncontrolled blood pressure and acute encephalopathy. The patient while at the supermarket felt tingling throughout her body and had a recent sinus infection where she was treated with amoxicillin. She felt sick and almost about to pass out. She was taken to [place] ED where on evaluation CAT scan of the head showed old encephalomalacia and laboratories showed hypokalemia. Chest x-ray was unremarkable for acute pathology. EKG showed normal sinus rhythm. She was admitted for acute encephalopathy and was admitted for cardiac and neurologic monitoring, was seen by Dr. Watkins. Echocardiogram done, showed ejection fraction of 60% to 65%. The patient had a presyncopal episode with normal echocardiogram. Syncope likely due to hypovolemia in view of the patient's diarrhea. The patient also is hypertensive and irbesartan was increased to 300 mg daily. She was also followed by Dr. De La Paz and was given Antivert for sinusitis with vestibular dysfunction and physical therapy and occupational therapy was recommended. Thyroid panel was checked and was abnormal. However, full treatment was not done as the patient signed out against medical advice. DISPOSITION: The patient left AMA. FINAL DIAGNOSES: 1. Acute metabolic encephalopathy. 2. Hypertension. 3. Presyncope, possibly secondary to hypokalemia secondary to diarrhea. 4. Active tobacco smoking with history of more than 20 pack years. 5. Hyperthyroid. 6. Chronic lumbar spondylosis. Daniel Villalba M.D. I have been assigned to dictate discharge summary on this account and I was not involved in the patient's management. Justine Tyson N.P. DR: Davonte JOB#: [id number] CC:
== END 2016-08-31 12:05 | disposition left against medical advice (07) | DRG 72 ==
LOC: EDBD 13:40 → EMR 14:01 → 2E 17:18 → EDBEDREQ 17:35
DX: G93.41 Metabolic encephalopathy (principal); R55 Syncope and collapse; I10 Essential (primary) hypertension; E86.1 Hypovolemia; F17.210 Nicotine dependence, cigarettes, uncomplicated; M47.896 Other spondylosis, lumbar region; Z88.6 Allergy status to analgesic agent; J32.9 Chronic sinusitis, unspecified; H81.90 Unspecified disorder of vestibular function, unspecified ear; E05.90 Thyrotoxicosis, unspecified without thyrotoxic crisis or storm; K21.9 Gastro-esophageal reflux disease without esophagitis
CPT/HCPCS: 36415; 70450; 71010; 80048; 80053; 80061; 81003; 82550; 83880; 84439; 84443; 84484; 85025; 85379; 85610; 85651; 85730; 93005; 93306; 93882; 93971; J2405